=== PATIENT | male | born 1985 | race Two or more races ===

== ENCOUNTER 2016-10-27 14:07 | Emergency (ER) | payer SELFPAY ==
[~2016-10-27] VITALS: Ht 170.2 cm; Wt 99.8 kg
[2016-10-27] MEDS ORDERED: ACETAMINOPHEN 500 MG TAB PO ONE ×2 (14:10→14:30)
[2016-10-27] MEDS ORDERED: SODIUM CHLORIDE 0.9% 1,000 ML IV ONE (16:24)
[2016-10-27] MEDS ORDERED: KETOROLAC TROMETH 30 MG/ML 1ML VIAL IV ONE (16:45)
[2016-10-27 17:04] LABS: Basophils # (auto) 0 uL; Basophils % (auto) 0.5 % (0.0-2.0); Eosinophils # (auto) 0.3 uL; Eosinophils % (auto) 3.5 % (0.0-7.0); Hematocrit 44.2 % (41.0-53.0); Hemoglobin 15.2 g/dL (13.5-17.5); Lymphocytes # (auto) 1.6 uL; Lymphocytes % (auto) 18.2 % (10.0-50.0); Mean Corpuscular Hgb Conc. 34.3 g/dL (32.0-36.0); Mean Corpuscular Volume 96.1 fL (80.0-100.0); Mean Platelet Volume 10.5 fL (7.4-10.4); Monocytes # (auto) 0.7 uL; Neutrophils # (auto) 6.2 uL; Neutrophils % (auto) 69.8 % (37.0-80.0); Platelet Count (auto) 220 10^3/uL (140-450); Red Cell Distribution Width 13.5 % (11.6-16.0); White Blood Cell 8.9 10^3/uL (4.4-10.8)
[2016-10-27] MEDS ORDERED: cefTRIAXone 1GM/50ML D5W 50 ML IV ONE (17:15)
[2016-10-27] MEDS ORDERED: AZITHROMYCIN 250 MG TAB PO ONE (17:15)
[2016-10-27 17:20] LABS: Albumin 3.8 g/dL (3.4-5.0); Amylase 48 U/L (25-115); Anion Gap 10 (5-15); Aspartate Aminotransferase 23 U/L (15-37); BUN/Creatinine Ratio 13.3; Blood Urea Nitrogen 12 mg/dL (7-18); Calcium 8.6 mg/dL (8.5-10.1); Carbon Dioxide 23 mmol/L (21-32); Chloride 105 mmol/L (98-107); GFR African American 127 mL/min; GFR Non-African American 105 mL/min; Glucose 92 mg/dL (74-106); Potassium 3.5 mmol/L (3.5-5.1); Sodium 138 mmol/L (136-145)
[2016-10-27 17:25] LABS: Alkaline Phosphatase 112 U/L (45-117); Bilirubin, Total 0.5 mg/dL (0.2-1.0); Total Protein 8.1 g/dL (6.4-8.2)
[2016-10-27 17:26] LABS: INR 1.03 (0.9-1.15); Partial Thromboplastin Time 25.6 sec (22.64-33.71); Prothrombin Time 10.6 sec (9.37-12.3)
[2016-10-27 18:00] VITALS: BP 149/81
== END 2016-10-27 18:33 | disposition home or self-care (01) ==
LOC: ER 14:07
DX: J18.9 Pneumonia, unspecified organism (principal); Z88.0 Allergy status to penicillin
CPT/HCPCS: 36415; 71010; 74176; 80053; 82150; 83690; 84484; 85025; 85610; 85730; 87040; 96365; 96375; 99285; J0696; J1885; J7030

== ENCOUNTER 2016-10-30 10:42 | Emergency (ER) | payer MEDICAID, OTHER ==
[~2016-10-30] VITALS: Ht 170.2 cm; Wt 95.3 kg
[2016-10-30] MEDS ORDERED: cefTRIAXone W LIDOCAINE 1 GM IM IM ONE (11:15)
[2016-10-30 12:14] VITALS: BP 110/66
== END 2016-10-30 12:32 | disposition home or self-care (01) ==
LOC: ER 10:42
DX: J18.9 Pneumonia, unspecified organism (principal)
CPT/HCPCS: 93005; 96372; 99283; J0696